=== PATIENT | female | born 1970 | race Caucasian/White ===

== ENCOUNTER 2016-06-29 05:43 | Day surgery (SDC) | payer OTHER ==
[2016-06-29] VITALS (12 sets, daily range): BP systolic 115–181; BP diastolic 70–97; PULSE 70–109; RESP 14–22; O2SAT 92–99
[~2016-06-29] VITALS: Ht 175.3 cm; Wt 86.2 kg
[~2016-06-29 05:43] MED LIST: GABA300C PO; GLPZ5T PO; Lactated Ringer's 1,000 ML IV SCH; METF1000 PO; ZOV800 PO
[2016-06-29] MEDS ORDERED: Ondansetron 2 mg/mL 2 mL Inj ONE (05:44)
[2016-06-29] MEDS ORDERED: Glycopyrrolate 0.2 MG/ML 1mL Inj ONE (05:44)
[2016-06-29] MEDS ORDERED: Propofol 10,000 mCg/mL 20 mL Inj ONE (05:44)
[2016-06-29] MEDS ORDERED: Rocuronium 10 mg/mL 5 mL Inj ONE (05:44)
[2016-06-29] MEDS ORDERED: Neostigmine 1 mg/mL 10 mL Inj ONE (05:44)
[2016-06-29] MEDS ORDERED: fentaNYL-PF 50 mCg/mL 2 mL Inj ONE (05:44)
[2016-06-29] MEDS ORDERED: Lactated Ringer's 1,000 ML IV ONE (06:02)
[2016-06-29] MEDS ORDERED: LORazepam 1 mg Tablet PO PRN (06:25)
--- NOTE | 2016-06-29 07:00 | PCM.HPANE ---
Patient Data Surgeon Admitting Provider: Attending Provider:Ashwin Osorio MD Primary Care Physician:Rangel Quiros DO Other [place] Anest[place] Reason for Visit Gallstones Ht/WT & BMI Height (Feet): 5 Height (Inches): 9.00 Weight (Kilograms): 86.190 Body Mass Index 28.00 Allergies Coded Allergies: Penicillins (Verified Allergy, Severe, rash, 04/09/09) azithromycin (Verified Allergy, Severe, severe diarrhea, 04/09/09) egg (Verified Allergy, Severe, indigestion/severe reaction to flu shot, 04/09/09) Past Anesthesia History Anesthesia History: Denies:: Anesthesia Reactions Diabetes History Hx Diabetes?: Yes (type II) Glycemic Control: Insulin Dependent Current Bedside Blood Glucose: 179 Medications Home Meds Incl Beta Corey: No Reported Medications Metformin (Glucophage)1,000 Mg Tablet1,000 Mg PO BID Ref 0 06/26/16 Glipizide 5 Mg Tablet5 Mg PO DAILY 30 Days 06/26/16 Gabapentin (Neurontin)300 Mg [id number] Mg PO TID 30 Days Ref 0 06/26/16 Acyclovir 800 Mg [id number] Mg PO TID Ref 0 06/26/16 Discontinued Reported Medications Gabapentin 300 Mg [id number] Mg PO DAILY Ref 0 12/02/15 Sulfamethoxazole/Trimeth 400-80 mg (Bactrim)1 Each Tablet1 Tablet PO BID Ref 0 12/02/15 Metformin-Expunged Drug, Do Not Renew! 1,000 Mg Tablet1,000 Mg PO BID 04/09/09 History History of ENT Problems?: No HEENT History: Denies:: Abnormal Airway Cataracts Difficult Intubation Dysphagia Glaucoma Hearing Problem Sinus Problem TMJ Denture Type: None Teeth Condition: Within Normal Limits Hx of Heart Problems?: No Cardiovascular History: Denies:: AICD Abdominal Aortic Aneurism Atrial Fibrillation Cardiac Surgery Chest Pain Congestive Heart Failure Coronary Artery Disease Edema Heart Murmur Hypertension Irregular Heartbeat Pacemaker Peripheral Vascular Rheumatic Fever Thrombophlebitis Valvular Heart Disease Hx of Respiratory Problem?: No Respiratory History: Denies:: Asthma COPD Chest Surgery Cough Dyspnea Emphysema Hemoptysis Oxygen Administration Pneumonia Pulmonary Embolism Tuberculosis Use of C-PAP Machine Use of Inhalers / NEBS Hx Neurologic Problems?: No Neurological History: Denies:: Alzheimer's Disease CVA Dementia Dizziness Headaches Multiple Sclerosis Parkinson's Disease Peripheral Neuropathy Seizures TIA Hx of GI Problems?: No Gastrointestinal History: Denies:: Cirrhosis Diverticulitis Gall Bladder Disease Gastroesphageal Reflux Gastrointestinal Bleeding Heartburn Hepatitis Hiatal Hernia Liver Disease Rectal Bleeding Hx of Problems?: No Genitourinary History: Denies:: HX of Hemodialysis Kidney Stones Urinary Tract Infection Skin History: Denies:: History Skin Disorders? Pressure Ulcers Hx Musculoskeletal Problems?: No Musculoskeletal History: Positive for:: Musculoskeletal Trauma (PINKY TOE) Osteoarthritis Hx of Psycho/Social Problems?: No Hx Surgeries?: Yes (TUBAL, ACL) Hx Any Other Health Problems?: Yes Hx Diabetes: Yes (type II)Bedside Blood Glucose: 179 Hx Alcohol Use: NoHx Substance Use: No Stop/Bang S-Snoring: Do You Snore Loudly: No T-Tired: feel tired, fatigued: No O-Obsered: Observed not breath: No P-Blood Pressure: treated: No B- Body Mass Index > 35 kg/m2: No A- Age over 50: No N- Neck Large Circumference: No G- Gender Male: No JOEL Total Score: 0 Risk Assessment Category Category 1A: Patient has history of documented sleep apnea, and HAS NOT received any narcotic, sedative or anesthesia administration during this stay. Category 1B: Patient has history of documented sleep apnea, and HAS received any narcotic , sedative or anesthesia administration during this stay Category 2: Patient has SUSPECTED Obstructive Sleep Apnea, and HAS received any narcotic , sedative or anesthesia administration during this stay. Category 3: Patient has SUSPECTED Obstructive Sleep Apnea and HAS NOT received narcotic, sedative or anesthesia administration during this stay. Category 4: Outpatient in Procedural Areas with known sleep apnea or who screen positive for High Risk via the STOP/BANG questionnaire. Exam Exam Vital Signs Vital Signs Date Time Temp Pulse Resp B/P Pulse Ox O2 Delivery O2 Flow Rate FiO2 06/29/16 06:09 35.9 96 17 164/97 96 Room Air General Appearance: Alert, Oriented X3, Cooperative HEENT/AIRWAY: MP 2, Neck Movement (nl), Mouth Opening (nl) Lungs: Clear to Auscultation Heart: Exam Unremarkable Meds/Labs/Diagnostics Admission Meds Current Medications Lactated Ringer's (Lr) 1,000 ml @ ud STK-MED ONCE IV Last administered on 06/29t 06:02; Start 06/29/16 at 06:02; Stop 06/29/16 at 06:03; Status DC Bedside Blood Glucose: 179 Plan Impression Patient chart reviewed, patient interviewed and anesthestic plan with risks, benefits, and alternatives discussed, and informed consent obtained. ASA Physical Status: ASA2 Mod Systemic Disease Anesthetic Plan: GA Bene/Risks/Altern/Consents: Yes HP Complete Prior to Induction: Yes Other BS= 178 Bay Garcia MD June 29, 2016 07:00
[2016-06-29] MEDS ORDERED: Lactated Ringer's 1,000 ML IV SCH (07:22)
[2016-06-29] MEDS ORDERED: Lactated Ringer's 500 ML IV PRN (07:22)
[2016-06-29] MEDS ORDERED: Bupivacaine-MPF 0.25%/EPI 30 mL Inj INFILTRATE ONE (07:24)
[2016-06-29] MEDS ORDERED: HYDROmorphone 1 mg/mL Inj IVPUSH PRN (07:25)
[2016-06-29] MEDS ORDERED: Dexamethasone 4 mg/mL Inj IVPUSH PRN (07:25)
[2016-06-29] MEDS ORDERED: hydrALAZINE 20 mg/mL Inj IVPUSH PRN (07:25)
[2016-06-29] MEDS ORDERED: Ondansetron 2 mg/mL 2 mL Inj IVPUSH PRN (07:25)
[2016-06-29] MEDS ORDERED: Labetalol 5 mg/mL 4 mL Inj IV PRN (07:25)
[2016-06-29] MEDS ORDERED: Phenylephrine 10,000 mCg/mL Inj IVPUSH PRN (07:25)
[2016-06-29] MEDS ORDERED: fentaNYL-PF 50 mCg/mL 2 mL Inj IVPUSH PRN (07:25)
[2016-06-29] MEDS ORDERED: Atropine 0.4 mg/mL Inj IVPUSH PRN (07:25)
[2016-06-29] MEDS ORDERED: EPHEDrine Sulfate 50 mg/mL Inj IVPUSH PRN (07:25)
[2016-06-29] MEDS ORDERED: HYDROcodone-APAP 5-325 mg Tablet PO PRN (08:30)
[2016-06-29] MEDS ORDERED: Insulin LISPRO 300 Unit/3 mL Inj SUBQ ONE ×2 (08:50→10:15)
--- NOTE | 2016-06-29 08:55 | PCM.ANEP1 ---
Post Anesthesia PACU Phase 1 Assessment Vital Signs Vital Signs Date Time Temp Pulse Resp B/P Pulse Ox O2 Delivery O2 Flow Rate FiO2 06/29/16 08:45 84 22 179/89 97 Simple Mask 7 06/29/16 08:40 36.6 175/86 06/29/16 06:09 35.9 96 17 164/97 96 Room Air Anesthetic Administered: GA Level of Alertness: Sleepy, easy to arouse REYES's with Equal Strength: Yes Pain: No Nausea or Vomiting: No CV Function & Hydration Stable: Yes Airway Device: Lungs: Normal Air Movement PACU Phase 2 Assessment Complications: No Follow up Care: No Patient Instructions Provided: N/A Bay Garcia MD June 29, 2016 08:55
--- NOTE | 2016-06-29 09:00 | OP ---
[address] [address] OPERATIVE REPORT PATIENT: LUIS CAMACHO : 1970 MR#: [id number] ADMIT: 06/29/2016 JOB ID: [id number] DATE OF SURGERY: 06/29/2016 ANESTHESIA: General. PREOPERATIVE DIAGNOSIS(ES): Symptomatic cholelithiasis. POSTOPERATIVE DIAGNOSIS(ES): Symptomatic cholelithiasis and nodular liver. OPERATIONS: 1. Laparoscopic cholecystectomy. 2. Laparoscopic core needle liver biopsy. SURGEON: Dr. Ashwin Osorio. ASSISTANTS: Morgan Portillo PA-C (the desk assistant was required for the safe and timely completion of the case). COMPLICATIONS: None. ESTIMATED BLOOD LOSS: Less than 5 mL. CONDITION: Satisfactory. SPECIMEN: 1. Gallbladder. 2. Liver biopsy. FINDINGS: There were some adhesions to the gallbladder suggesting previous inflammation. The liver appeared somewhat nodular and, therefore, core needle biopsy was taken. INDICATIONS/SIGNIFICANT HISTORY: The patient is a 46-year-old female, who for the past few months has been experiencing postprandial right upper quadrant abdominal pain. She had gotten to the point where her pain was near continuous. An ultrasound was obtained which showed cholelithiasis. She was referred to me and I recommended cholecystectomy. OPERATIVE TECHNIQUE: The patient was taken into the operating room and placed in the supine position. General anesthesia was administered and the abdomen was prepped and draped in a standard surgical fashion. A procedure pause was performed. Entry was gained into the abdomen through a supraumbilical incision using a 10 mm Optiview trocar. Pneumoperitoneum was achieved without complication. Local anesthetic was injected, followed by insertion of 5 mm ports in the subxiphoid as well as two in the right upper quadrant. There were some adhesions of the omentum to the gallbladder which were taken down using electrocautery. The gallbladder was then grasped and retracted cephalad. Dissection begun to identify the cystic duct and the cystic artery. Critical view of safety was achieved. Adjacent to the duct, there is a small posterior artery. Single clips were placed in each artery and these were taken using cautery. Three clips were then placed on the duct and this was taken sharply. The remainder of the dissection of the gallbladder off the cystic plate was then completed. A very small amount of bile leak passed the clip on the cystic duct. This was completely aspirated. There was a small amount of bleeding from the liver at the superior aspect of the cystic plate which was controlled with electrocautery. The gallbladder was placed in an EndoCatch bag and then removed through the umbilical port site. I then made a small stab incision in the right upper quadrant and then under laparoscopic visualization made two passes with a 14-gauge Janak-Cut liver biopsy needle under laparoscopic visualization elevating the liver to make sure that I did not go through and through. The core needle biopsy sites were then controlled using electrocautery. The surgical bed was inspected, found to be completely hemostatic. The fascia at the umbilical port site was then closed using 0 PDS suture with the laparoscopic suture passer. The lateral ports removed under direct visualization followed by release of the pneumoperitoneum and removal of the remaining port. Skin was closed using 4-0 Monocryl. The entire procedure was well tolerated without complication.
--- NOTE | 2016-07-05 14:10 | PATH ---
SURGICAL PATHOLOGY Attending Physician:Ashwin Osorio MD CASE STATUS: Signed Out PATIENT NAME: LUIS CAMACHO PID: [id number] : 1970 DATE COLLECTED:06/29/2016 15:28 SPECIMEN: 1: Gallbladder 2: Liver, Needle Biopsy CLINICAL HISTORY: GALLSTONES, NODULAR LIVER 1. GALLBLADDER 2. LIVER BX FINAL DIAGNOSIS: 1.GALLBLADDER: CHRONIC CHOLECYSTITIS WITH CHOLELITHIASIS. No evidence of malignancy. 2.LIVER BIOPSY: PATCHY PORTAL CHRONIC INFLAMMATION ASSOCIATED WITH RARE NONCASEATING GRANULOMAS. THE FINDINGS RAISE THE POSSIBILITY OF SARCOIDOSIS (PLEASE SEE COMMENT). No evidence of malignancy or cirrhosis. ICD10 K80.6 D86.89 NOTE: The presence of granulomas with asteroid bodies is suggestive of sarcoidosis. However, other possible explanations include a drug-induced hepatitis. Clinical correlation is required for a definite diagnosis. GROSS DESCRIPTION: The specimen is received in two formalin filled containers labeled with the patient's name. 1). The specimen is sublabeled "gallbladder" and consists of a slightly opened 7.0 x 2.0 x 2.0 CM gallbladder. The serosa is smooth. The wall is 0.2-0.3 CM in thickness. The mucosa is a green denton in color. The lumen contains a light to dark green mucoid material and one dark green black calculus which measures 3.0 x 2.0 x 2.0 CM. 5 medical office representative sections are submitted cassette 1A. 2). The specimen is sublabeled "liver" and consists of 4 fragments of light denton cylindrical shaped tissue which aggregate to 1.5 x 0.2 x 0.2 CM. The specimen is entirely submitted in cassette 2A. 06/29/2016 [facility] MICRO DESCRIPTION: 2. The hepatic architecture is intact. Some, but not all portal areas are expanded by moderate numbers of lymphocytes. Rare noncaseating granulomas are identified. They are primarily in the portal areas, but do not involve bile ducts. Also found are asteroid bodies. Minimal steatosis is found in the lobules. Glycogenated nuclei are present. No additional granulomas are found within the lobules. Trichrome and reticulin stains demonstrate mild portal fibrosis with no bridging between portal areas. An iron stain is negative. A PAS stain is negative. The findings raise the possibility of sarcoidosis of the liver. ICD-9 CODES: CPT CODES: 1: 09041 2: 42995, 67861, 28279, 56585, 80958 Electronically Signed Out Thierno Cardona MD [facility] [address], [place] [address] Technical component performed at [facility], [address], [place], [address]
== END 2016-06-29 23:59 | disposition home or self-care (01) ==
LOC: SAS 05:43
PROVIDERS: ATTEND General Practice
DX: K80.10 Calculus of gallbladder with chronic cholecystitis without obstruction (principal); D86.89 Sarcoidosis of other sites; E11.9 Type 2 diabetes mellitus without complications; G62.9 Polyneuropathy, unspecified; Z79.84 Long term (current) use of oral hypoglycemic drugs; K76.89 Other specified diseases of liver
CPT/HCPCS: 47379; 47562; J1815; J2250; J2405; J2710; J3010; J7120